=== PATIENT | female | born 2000 | race Two or more races ===

== ENCOUNTER 2022-08-07 01:06 | Emergency (ER) | payer OTHER ==
[~2022-08-07] VITALS: Ht 157.5 cm; Wt 61.0 kg
[2022-08-07 01:24] VITALS: BP 109/60
[2022-08-07 03:37] LABS: Urine Bacteria NONE SEEN /hpf (None Seen); Urine Blood Negative /uL (Negative); Urine WBC <1 /hpf (0 - 5)
== END 2022-08-07 08:37 | disposition left against medical advice (07) ==
LOC: ER 01:08
DX: R10.13 Epigastric pain (principal); M54.9 Dorsalgia, unspecified; Z53.21 Procedure and treatment not carried out due to patient leaving prior to being seen by health care provider
CPT/HCPCS: 81001; 81025